=== PATIENT | female | born 2000 | race Two or more races ===

== ENCOUNTER 2019-05-01 23:14 | Emergency (ER) | payer SELFPAY ==
[~2019-05-01] VITALS: Ht 157.5 cm; Wt 82.6 kg
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
--- NOTE | 2019-05-02 00:10 | NUR ---
UNABLE TO LOCATE HEART TONE WITH DOPPLER. ER AWARE.
--- NOTE | 2019-05-02 00:58 | NUR ---
US AT BEDSIDE.
[2019-05-02 02:11] VITALS: BP 127/70
== END 2019-05-02 02:13 | disposition home or self-care (01) ==
LOC: ER 23:24
DX: O26.893 Other specified pregnancy related conditions, third trimester (principal); R10.9 Unspecified abdominal pain; O9A.213 Injury, poisoning and certain other consequences of external causes complicating pregnancy, third trimester; J45.909 Unspecified asthma, uncomplicated; Z3A.29 29 weeks gestation of pregnancy
CPT/HCPCS: 76856-TC